=== PATIENT | female | born 1945 | race Caucasian/White ===

== ENCOUNTER 2018-01-16 13:47 | Emergency (ER) | payer MEDICARE, OTHER ==
[2018-01-16 13:57] LABS: BASO % 0.4 % (0-6); EOS % 2.1 % (0-6); GRAN % 56.4 % (47-80); HEMATOCRIT 44.1 % (35.0-47.0); LYMPH % 32.8 % (16-45); MEAN CELL VOLUME 93.8 fl (81-97); MEAN CORPUSCULAR HEMOGLOBIN 29.8 pg (27-33); MEAN CORPUSCULAR HGB CONC 31.7 g/dl (32-36); MONO % 8.3 % (0-9); PLATELET COUNT 343 K/uL (130-400); RED CELL DISTRIBUTION WIDTH 13.3 % (11.5-14.5); WHITE BLOOD COUNT W/O DIFF 11.6 K/uL (4.2-12.2)
[2018-01-16] MEDS ORDERED: MORPHINE SULFATE 4MG/ML PREFILLED SYRINGE IVP ONE ×2 (14:00→16:17)
[2018-01-16 14:04] LABS: BLOOD UREA NITROGEN 28 mg/dL (8-23); CREATININE 0.7 mg/dL (0.5-0.9); EST GLOMERULAR FILTRATION RATE > 60 mL/min
[2018-01-16 14:05] LABS: PARTIAL THROMBOPLASTIN TIME 25.7 SECONDS (24.5-39.1); PROTHROMBIN TIME (PATIENT) 10.7 SECONDS (9.5-12.1); TOTAL PROTEIN 7.3 g/dL (6.6-8.7)
--- NOTE | 2018-01-16 14:06 | Emergency Department Record ---
History of Present Illness - General Chief Complaint: Trauma Stated Complaint: FALL Time Seen by Provider: 01/16/18 13:49 Source: Patient, Family Mode of Arrival: Stretcher Limitations: No limitations - History of Present Illness Initial Comments: 72 yo female presents from the stress test center at [facility]. She was performing the treadmill portion and fall on the treadmill. The respiratory therapist performing the test states the machine would not go down or stop. She fell face forward. She is on Plavix (no longer on Coumadin). She has right shoulder pain (acute on chronic), back and flank pain, right knee pain. No LOC. No obvious scalp contusions. She was having the stress test for recent worsening shortness of breath. Wireless Cellular Technician is Dr Anand. PCP is Dr. Cohen. Complaint: Fall -: Minutes(s) (1) Loss of Consciousness: No Location: Back Location - Extremities: Right: Shoulder, Knee Consistency: Constant Context: Other (Fell during a stress test at [facility]) Associated Symptoms: Other Treatments Prior to Arrival: Other - Related Data Home Medications Medication Instructions Recorded Confirmed Last Taken Aspirin [Aspir-Low] 81 mg PO DAILY 01/16/18 01/16/18 Unknown Lorazepam [Ativan] 0.5 mg PO ASDIR 01/16/18 01/16/18 Unknown Sertraline HCl [Zoloft] 25 mg PO DAILY 01/16/18 01/16/18 Unknown Allergies Allergy/AdvReac Type Severity Reaction Status Date / Time cephalexin monohydrate Allergy hives Unverified 09/12/17 11:04 [From Keflex] ciprofloxacin [From Cipro] Allergy swollen Unverified 09/12/17 11:04 throat ciprofloxacin HCl Allergy swollen Unverified 09/12/17 11:04 [From Cipro] throat Sulfa (Sulfonamide Allergy HYPERSENSIT Verified 01/16/18 14:23 Antibiotics) IVITY Review of Systems Constitutional: Denies: Chills, Fever, Malaise, Weakness Eyes: Denies: Eye discharge ENT: Denies: Congestion, Throat pain Respiratory: Reports: Dyspnea Cardiovascular: Denies: Chest pain, Palpitations, Syncope Endocrine: Reports: Fatigue Gastrointestinal: Denies: Abdominal pain, Diarrhea, Nausea, Vomiting Genitourinary: Denies: Dysuria, Urgency Musculoskeletal: Reports: Arthralgia, Back pain, Myalgia Skin: Denies: Bruising, Change in color, Rash Neurological: Denies: Headache, Numbness, Tremors, Vertigo, Weakness Psychiatric: Denies: Anxiety Hematological/Lymphatic: Denies: Blood Clots, Easy bleeding, Easy bruising, Swollen glands Physical Exam - General General Appearance: Alert, Oriented x3, Cooperative, No acute distress Limitations: No limitations - Head Head exam: negative: Atraumatic, Normocephalic, Normal inspection Head exam detail: negative: Abrasion, Contusion, General tenderness, Hematoma - Eye Eye exam: Normal appearance, PERRL. negative: Conjunctival injection, Scleral icterus - ENT ENT exam: Normal exam, Mucous membranes moist Ear exam: Normal external inspection Nasal Exam: Normal inspection Mouth exam: Normal external inspection - Neck Neck exam: Normal inspection, Full ROM. negative: Tenderness - Respiratory Respiratory exam: Normal lung sounds bilaterally. negative: Accessory muscle use, Chest wall tenderness, Decreased breath sounds, Prolonged expiratory, Respiratory distress, Rhonchi, Stridor, Wheezes - Cardiovascular Cardiovascular Exam: Regular rate, Normal rhythm, Normal heart sounds - GI/Abdominal GI/Abdominal exam: Soft. negative: Distended, Guarding, Rebound, Rigid, Tenderness - Rectal Rectal exam: Deferred - exam: Deferred - Extremities Extremities exam: Normal inspection, Tenderness. negative: Full ROM Image of Full Body: 1 - tenderness to palpation, 2 - tender to palpation, no deformity 3 - tender, no deformity Course - Reevaluation(s) Reevaluation #1: 01/16/18 14:38 No acute changes on the CBC,CMP or PT/PTT 01/16/18 15:17 The HCT was negative for acute process The Cervical Spine CT was negative for acute process or injury 01/16/18 15:[address] of the Chest was negative The CT of the Abdomen and Pelvis were negative for acute injury. Hemangioma was noted in the liver. 01/16/18 16:14 On recheck the patient has back pain that is not controlled. She is unable to stand due to pain. In order to complete the stress test at [facility] she would have to stand. She was able to complete the ECHO. I recommend transfer to [facility] to complete the stress test and further evaluate the back pain after the fall. The CT was negative for thoracolumbar injury on the chest, abdomen, and pelvis CT today. 01/16/18 16:24 Dr Cheema accepts the patient for transfer to [facility] for further work up. Medical Decision Making - Lab Data Result diagrams: 01/16/18 13:50 01/16/18 13:50 Lab Results 01/16/18 Range/Units 13:50 WBC 11.6 (4.2-12.2) K/uL RBC 4.70 (3.80-5.40) M/uL Hgb 14.0 (11.6-16.0) gm/dl Hct 44.1 (35.0-47.0) % MCV 93.8 (81-97) fl MCH 29.8 (27-33) pg MCHC 31.7 L (32-36) g/dl RDW 13.3 (11.5-14.5) % Plt Count 343 (130-400) K/uL MPV 10.0 (7.4-10.4) fl Gran % 56.4 (47-80) % Lymphocytes % 32.8 (16-45) % Monocytes % 8.3 (0-9) % Eosinophils % 2.1 (0-6) % Basophils % 0.4 (0-6) % Disposition Disposition: Transfer Clinical Impression: Fall Qualifiers: Encounter type: initial encounter Qualified Code(s): W19.XXXA - Unspecified fall, initial encounter Lumbar strain Qualifiers: Encounter type: initial encounter Qualified Code(s): S39.012A - Strain of muscle, fascia and tendon of lower back, initial encounter Dyspnea Qualifiers: Dyspnea type: dyspnea on exertion Qualified Code(s): R06.09 - Other forms of dyspnea Disposition: Acute Care Hospital Transfer Transfer To: [facility] Reason For Transfer: Fall, back injury, dyspnea Accepting Physician: Deni Time Discussed w/Accepting Physician: 16:25 Condition: (2) Stable Forms: Patient Portal Access Time of Disposition: 16:17 Quality - Quality Measures Quality Measures: N/A - Blood Pressure Screening Does Patient Have Any of the Following: Active Dx of HTN Blood Pressure Classification: Hypertensive Reading Systolic Measurement: 151 Diastolic Measurement: 69 Screening for High Blood Pressure: Patient Exclusion, Hx of HTN [[id number]]
[2018-01-16 14:07] LABS: GLUCOSE,RANDOM 124 mg/dL (74-109)
[2018-01-16 14:09] LABS: ALT/SGPT 18 U/L (<33); AST/SGOT 14 U/L (10.0-35.0)
[2018-01-16 14:10] LABS: ALB/GLOB RATIO 1.4 (1.1-1.8); ALBUMIN 4.3 g/dL (4.0-5.0); ALKALINE PHOSPHATASE 111 U/L (35-104)
[2018-01-16] MEDS ORDERED: ACETAMINOPHEN 1,000 MG/100 ML BTL IVPB ONE (16:17)
--- NOTE | 2018-01-17 09:54 | CT SCAN REPORT ---
EXAM: CT OF THE BRAIN HISTORY: BACK PAIN AND FALL. TECHNIQUE: CT of the brain without contrast was obtained. Comparison: None. FINDINGS: The globes are intact. The paranasal sinuses and mastoid air cells are unremarkable. No displaced or depressed skull fracture. No intra or extraaxial hemorrhage. CT is limited for evaluation of acute infarct. No CT evidence for large or territorial acute infarct. No mass or midline shift. Age appropriate atrophy with small vessel ischemic change. IMPRESSION: AGE APPROPRIATE ATROPHY. SMALL VESSEL ISCHEMIC CHANGE. JOB NUMBER: [id number] [facility]
--- NOTE | 2018-01-17 09:57 | CT SCAN REPORT ---
EXAM: CT OF THE CERVICAL SPINE HISTORY: FALL. TECHNIQUE: Axial CT images of the cervical spine were obtained with coronal and sagittal reconstructions. Comparison: None. FINDINGS: Evaluation of spinal canal contents is limited due to CT technique, however, the vertebral body height and alignment is preserved. Multilevel degenerative change throughout the cervical spine. The atlantoaxial space is preserved. The lateral masses are not displaced. The surrounding soft tissues are grossly unremarkable. IMPRESSION: NEGATIVE FOR ACUTE CERVICAL SPINE ABNORMALITY. J[facility]BER: [id number] [facility]
--- NOTE | 2018-01-17 10:31 | CT SCAN REPORT ---
EXAM: CT OF THE CHEST HISTORY: FALL. TECHNIQUE: CT of the chest was performed following IV administration of 100 ml of Omnipaque 300 contrast. Comparison: None. FINDINGS: The mediastinal vasculature enhances normally. No mediastinal or hilar adenopathy. Cardiomegaly with coronary artery calcification. The osseous structures of the thorax demonstrate diffuse degenerative change throughout the thoracic spine. No CT evidence for acute osseous abnormality. No pneumothorax. The visualized airways are patent. The lungs are clear. IMPRESSION: NEGATIVE FOR ACUTE INTRATHORACIC PROCESS. [facility]: [id number] [facility]
--- NOTE | 2018-01-17 10:36 | CT SCAN REPORT ---
EXAM: CT OF THE ABDOMEN AND PELVIS HISTORY: BACK PAIN. TECHNIQUE: CT of the abdomen and pelvis was performed following IV administration of 100 ml of Omnipaque 300 contrast. Lack of oral contrast limits evaluation of bowel. Comparison: None. FINDINGS: Limited evaluation of the lung bases is unremarkable. The osseous structures are grossly intact. Fatty infiltrative change to the liver. There is an approximately 3.8 x 5.3 cm heterogeneously enhancing mass within the liver likely hemangioma in the absence of cancer history. The spleen, adrenal glands, pancreas and kidneys are unremarkable. Moderate atheromatous change. No free air or free fluid. No gross evidence for bowel obstruction. IMPRESSION: 1. NEGATIVE FOR ACUTE INTRAABDOMINAL/PELVIC PROCESS. FATTY INFILTRATIVE CHANGE TO THE LIVER WITH PROBABLE HEMANGIOMA. 2. ATHEROMATOUS CHANGE. ABUNDANT STOOL IN THE COLON. JOB NUMBER: [id number] [facility]
--- NOTE | 2018-01-17 10:39 | RADIOLOGY REPORT ---
EXAM: RIGHT KNEE, TWO VIEWS HISTORY: INJURY. TECHNIQUE: Two views of the right knee were obtained. Comparison: None. FINDINGS: Osteopenia. Negative for acute fracture or dislocation. Tricompartmental degenerative change with tricompartmental narrowing and spur formation. The soft tissues are unremarkable. IMPRESSION: OSTEOPENIA WITH TRICOMPARTMENTAL DEGENERATIVE CHANGE. JOB NUMBER: [id number] [facility]
== END 2018-01-16 17:29 | disposition short-term general hospital (02) ==
LOC: ER 13:47
DX: S39.012A Strain of muscle, fascia and tendon of lower back, initial encounter (principal); S40.011A Contusion of right shoulder, initial encounter; S80.01XA Contusion of right knee, initial encounter; R06.00 Dyspnea, unspecified; I10 Essential (primary) hypertension; W18.39XA Other fall on same level, initial encounter; Y93.A1 Activity, exercise machines primarily for cardiorespiratory conditioning; Y92.538 Other ambulatory health services establishments as the place of occurrence of the external cause; Z79.01 Long term (current) use of anticoagulants
CPT/HCPCS: 99285 ×2; 96376; 94760; 96365; 96375; 85025; 85730; 85610; 80053; 73560; 72125; 71260; 70450; 74177; Q9967; J2274